=== PATIENT | female | born 1940 | race Caucasian/White ===

== ENCOUNTER 2018-07-20 19:14 | Emergency (ER) | payer OTHER ==
[~2018-07-20] VITALS: Ht 154.9 cm; Wt 52.6 kg
[2018-07-20] MEDS ORDERED: SKELAXIN800 MG PO (22:34)
[2018-07-20] MEDS ORDERED: CELEBREX100 MG PO (22:34)
== END 2018-07-20 22:43 | disposition home or self-care (01) ==
LOC: ER 19:14
DX: S00.83XA Contusion of other part of head, initial encounter (principal); S00.33XA Contusion of nose, initial encounter; S00.531A Contusion of lip, initial encounter; S80.02XA Contusion of left knee, initial encounter; S19.89XA Other specified injuries of other specified part of neck, initial encounter; W01.198A Fall on same level from slipping, tripping and stumbling with subsequent striking against other object, initial encounter; Y93.89 Activity, other specified; Y92.22 Religious institution as the place of occurrence of the external cause; Y99.8 Other external cause status